=== PATIENT | female | born 1990 | race Caucasian/White ===

== ENCOUNTER 2017-11-03 19:24 | Emergency (ER) | payer OTHER ==
[2017-11-03] MEDS ORDERED: Sodium Chloride 0.9% 1000 ML 1,000 ML IV STA (19:30)
[2017-11-03 19:47] VITALS: O2SAT 99
[2017-11-03] MEDS ORDERED: Sodium Chloride 0.9% 1000 ML 1,000 ML ONE (19:53)
[2017-11-03 19:54] LABS: Basophil (Absolute #) 0 (0-0.4); Eosinophil % 1.2 % (0.00-5.0); Eosinophil (Absolute #) 0.09 (0-0.5); Granulocyte Absolute (ANC) 4.85 (1.4-6.9); Granulocytes % 65.8 % (36.0-66.0); Hemoglobin 12.3 gm/dl (12.0-16.0); Lymphocyte (Absolute #) 1.65 (1.0-4.6); Lymphocytes % 22.4 % (24.0-44.0); Mean Cell Volume 90.2 fl (78-100); Mean Corpuscular Hgb Concent. 33.2 g/dl (32-36); Monocyte (Absolute #) 0.78 (0.0-1.3); Monocytes % 10.6 % (0.0-12.0); Platelet Count 187 K/mm3 (150-450); Red Cell Distribution Width 12.8 % (11.5-14.0); White Blood Count 7.4 K/mm3 (4.0-10.5)
--- NOTE | 2017-11-03 20:02 | ERPHSYRPT ---
- History of Present Illness Time Seen by Provider: 11/03/17 19:57 Source: patient Exam Limitations: no limitations Patient Subjective Stated Complaint: pt states she began having chest pain approx 3-4 hours ago. describes pain as pressure and pounding in her chest. Triage Nursing Assessment: pt alert and oriented, answers questions approp. pt ambulatory with steady gait noted. respirations nonlabored with lungs cta. skin pink warm and dry. heart rate 92 on monitor, sinus arrhythmia with frequest pvc' s and occasional bigeminy. Physician History: 27-year-old female without any significant past medical history started having chest pain and pounding sensation in her chest for last 3-4 hours. 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 She denies any fever, chills, nausea, vomiting, shortness of breath. She states that she had a same type of problem when she was . Holter monitor and all other tests were found to be unremarkable. Since then. She did not have at this type of feeling. She denies any other stressful situation at present. Timing/Duration: today Activities at Onset: none Quality: fullness Location: substernal Chest Pain Radiation: no radiation Severity of Pain-Max: mild Severity of Pain-Current: moderate Modifying Factors: Improves With: nothing Nitro Today/Relief: no nitro taken today Aspirin Treatment Today: no aspirin today Associated Symptoms: chest pain, other (palpitations), No nausea, No vomiting, No abdominal pain, No shortness of breath, No diaphoresis, No cough, No chills, No fever, No headaches, No loss of appetite, No malaise, No syncope, No seizure , No weakness Prior Chest Pain/Cardiac Workup: no prior chest pain Allergies/Adverse Reactions: cefaclor [From Ceclor] Allergy (Intermediate, Verified 11/03/17 19:50) Rash Home Medications: Sertraline HCl 50 mg [Zoloft 50 mg Tablet] 50 mg PO HS 11/03/17 [History] Hx Tetanus, Diphtheria Vaccination/Date Given: Yes Hx Influenza Vaccination/Date Given: Yes Hx Pneumococcal Vaccination/Date Given: No Immunizations Up to Date: Yes - Review of Systems Constitutional: No Fever, No Chills Eyes: No Symptoms Ears, Nose, & Throat: No Symptoms Respiratory: No Cough, No Dyspnea Cardiac: Chest Pain, Palpitations, No Edema, No Syncope Abdominal/Gastrointestinal: No Abdominal Pain, No Nausea, No Vomiting, No Diarrhea Genitourinary Symptoms: No Dysuria Musculoskeletal: No Back Pain, No Neck Pain Skin: No Rash Neurological: No Dizziness, No Focal Weakness, No Sensory Changes Psychological: No Symptoms Endocrine: No Symptoms All Other Systems: Reviewed and Negative - Past Medical History Pertinent Past Medical History: No Psycho-Social History: Anxiety, Depression Other Medical History: hx of irreg hr, pvc's while - Past Surgical History Past Surgical History: Yes Gastrointestinal: Cholecystectomy Other Surgical History: T&A - Social History Smoking Status: Never smoker Exposure to second hand smoke: No Drug Use: none Patient Lives Alone: No - Female History Hx Last Menstrual Period: 10/11/17 Hx Now: No - Nursing Vital Signs Nursing Vital Signs: Initial Vital Signs Temperature 99.0 F 11/03/17 19:38 Pulse Rate 74 11/03/17 19:38 Respiratory Rate 18 11/03/17 19:38 Blood Pressure 158/116 11/03/17 19:38 O2 Sat by Pulse Oximetry 99 11/03/17 19:38 Pain Scale Pain Intensity 4 - Physical Exam General Appearance: no apparent distress, alert Eye Exam: PERRL/EOMI, eyes nml inspection Ears, Nose, Throat Exam: normal ENT inspection, moist mucous membranes Neck Exam: normal inspection, non-tender, supple Respiratory Exam: normal breath sounds, lungs clear, No respiratory distress Cardiovascular Exam: normal heart sounds, tachycardia, No edema Gastrointestinal/Abdomen Exam: soft, No tenderness, No mass Back Exam: normal inspection, No CVA tenderness, No vertebral tenderness Extremity Exam: normal inspection, normal range of motion Neurologic Exam: alert, oriented x 3, cooperative, normal mood/affect, nml cerebellar function, sensation nml, No motor deficits Skin Exam: normal color, warm, dry Lymphatic Exam: No adenopathy SpO2: 99 Oxygen Delivery: Room Air - Course Nursing assessment & vital signs reviewed: Yes EKG Interpreted by Me: Other (multiple PVCs) - Radiology Exams Chest X-ray Interpretation: Reviewed by me, Negative Ordered Tests: Active Orders 24 hr Category Date Time Status 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 Care 11/03/17 19:31 Active EKG-ER Only STAT Care 11/03/17 19:30 Active IV Insertion STAT Care 11/03/17 19:30 Active CHEST 1 VIEW (PORTABLE) Stat Exams 11/03/17 19:31 Completed CBC W DIFF Stat Lab 11/03/17 19:50 Completed CMP Stat Lab 11/03/17 19:50 Completed CULTURE,URINE Stat Lab 11/03/17 20:15 Received D-DIMER QUANTITATION Stat Lab 11/03/17 19:50 Completed HCG QUALITATIVE,SERUM Stat Lab 11/03/17 19:50 Completed TROPONIN Q3H Lab 11/03/17 19:50 Completed TROPONIN Q3H Lab 11/03/17 22:30 Ordered TROPONIN Q3H Lab 11/04/17 01:30 Ordered TROPONIN Q3H Lab 11/04/17 04:30 Ordered TROPONIN Q3H Lab 11/04/17 07:30 Ordered UA W/ MICROSCOPIC Stat Lab 11/03/17 20:15 Completed Medication Summary Generic Name Dose Route Start Last Admin Trade Name Freq PRN Reason Stop Dose Admin Potassium Chloride/Sodium Chloride 1,000 mls @ 500 mls/hr 11/03/17 20:30 20:50 Sodium Chloride 0.9% W/ 20 Meq Kcl/Liter IV 12/03/17 20:29 500 mls/hr .Q2H LINDA Administration Discontinued Medications Generic Name Dose Route Start Last Admin Trade Name Freq PRN Reason Stop Dose Admin Sodium Chloride 1,000 mls @ 999 mls/hr 11/03/17 19:30 11/03/17 19:55 Sodium Chloride 0.9% 1000 Ml IV 11/03/17 20:30 999 mls/hr .Q1H1M STA Administration Sodium Chloride Confirm 11/03/17 19:53 Sodium Chloride 0.9% 1000 Ml Administered 11/03/17 19:54 Dose 1,000 mls @ ud .ROUTE .STK-MED ONE Magnesium Sulfate/Dextrose 100 mls @ 200 mls/hr 11/03/17 20:32 11/03/17 20:50 Magnesium 1 Gm / 100 Ml D5w IV 11/03/17 21:01 200 mls/hr STAT ONE Administration Ceftriaxone Sodium/Dextrose 1 g in 50 mls @ 100 mls/hr 11/03/17 20:36 20:44 Rocephin 1 Gm-D5w 50 Ml Bag IV 11/03/17 21:05 100 mls/hr STAT STA Administration Magnesium Sulfate/Dextrose Confirm 11/03/17 20:40 Magnesium 1 Gm / 100 Ml D5w Administered 11/03/17 20:41 Dose 100 mls @ ud IV .STK-MED ONE Ceftriaxone Sodium/Dextrose Confirm 11/03/17 20:40 Rocephin 1 Gm-D5w 50 Ml Bag Administered 11/03/17 20:41 Dose 1 g in 50 mls @ ud IV .STK-MED ONE Lab/Rad Data: Laboratory Result Diagrams 11/03/17 19:50 11/03/17 19:50 Laboratory Results 11/03/17 11/03/17 11/03/17 Range/Units 20:15 19:50 19:50 WBC (4.0-10.5) K/mm3 RBC (4.1-5.4) M/mm3 Hgb (12.0-16.0) gm/dl Hct (35-47) % MCV (78-100) fl MCH (26-32) pg MCHC (32-36) g/dl RDW (11.5-14.0) % Plt Count (150-450) K/mm3 MPV (6-9.5) fl Gran % (36.0-66.0) % Lymphocytes % (24.0-44.0) % Monocytes % (0.0-12.0) % Eosinophils % (0.00-5.0) % Basophils % (0.0-0.4) % Basophils # (0-0.4) D-Dimer (0-500) ng/mL Sodium (136-145) mEq/L Potassium (3.5-5.1) mEq/L Chloride (98-107) mEq/L Carbon Dioxide (21-32) mEq/L Anion Gap (5-15) MEQ/L BUN (9-20) mg/dL Creatinine (0.55-1.30) mg/dl Estimated GFR ML/MIN Glucose (70-110) MG/DL Calcium (8.5-10.1) mg/dL Total Bilirubin (0.2-1.0) mg/dL AST (15-37) U/L ALT (12-78) U/L Alkaline Phosphatase (46-116) U/L Troponin I < 0.017 (0.000-0.056) ng/ml Serum Total Protein (6.4-8.2) gm/dL Albumin (3.4-5.0) g/dL Serum , Qual NEGATIVE (Negative) Ur Collection Type CLEAN CATCH Urine Color YELLOW (YELLOW) Urine Appearance CLEAR (CLEAR) Urine pH 5.0 (5-6) Ur Specific [place] 1.020 (1.005-1.025) Urine Protein NEGATIVE (Negative) Urine Ketones SMALL (NEGATIVE) Urine Blood TRACE NON-HEM (0-5) Raul/ul Urine Nitrite NEGATIVE (NEGATIVE) Urine Bilirubin NEGATIVE (NEGATIVE) Urine Urobilinogen NORMAL (0-1) mg/dL Ur Leukocyte Esterase 2+ (NEGATIVE) Urine Microscopic RBC 2-5 (0-2) /HPF Urine Microscopic WBC 5-10 (0-5) /HPF Ur Epithelial Cells FEW (FEW) /HPF Urine Bacteria MODERATE (NEGATIVE) /HPF Urine Mucus SLIGHT (NEGATIVE) /HPF Urine Culture Reflexed YES (NO) Urine Glucose NEGATIVE (NEGATIVE) mg/dL Specimen Received 11/03/17201411/03/17 11/03/17 11/03/17 Range/Units 19:50 19:50 19:50 WBC 7.4 (4.0-10.5) K/mm3 RBC 4.10 (4.1-5.4) M/mm3 Hgb 12.3 (12.0-16.0) gm/dl Hct 37.0 (35-47) % MCV 90.2 (78-100) fl MCH 30.0 (26-32) pg MCHC 33.2 (32-36) g/dl RDW 12.8 (11.5-14.0) % Plt Count 187 (150-450) K/mm3 MPV 11.0 H (6-9.5) fl Gran % 65.8 (36.0-66.0) % Lymphocytes % 22.4 L (24.0-44.0) % Monocytes % 10.6 (0.0-12.0) % Eosinophils % 1.2 (0.00-5.0) % Basophils % 0.0 (0.0-0.4) % Basophils # 0 (0-0.4) D-Dimer 446.84 (0-500) ng/mL Sodium 138 (136-145) mEq/L Potassium 3.0 L* (3.5-5.1) mEq/L Chloride 101 (98-107) mEq/L Carbon Dioxide 23.8 (21-32) mEq/L Anion Gap 16.1 H (5-15) MEQ/L BUN 14 (9-20) mg/dL Creatinine 0.94 (0.55-1.30) mg/dl Estimated GFR > 60 ML/MIN Glucose 84 (70-110) MG/DL Calcium 9.1 (8.5-10.1) mg/dL Total Bilirubin 0.60 (0.2-1.0) mg/dL AST 24 (15-37) U/L ALT 31 (12-78) U/L Alkaline Phosphatase 73 (46-116) U/L Troponin I (0.000-0.056) ng/ml Serum Total Protein 7.7 (6.4-8.2) gm/dL Albumin 3.9 (3.4-5.0) g/dL Serum , Qual (Negative) Ur Collection Type Urine Color (YELLOW) Urine Appearance (CLEAR) Urine pH (5-6) Ur Specific [place] (1.005-1.025) Urine Protein (Negative) Urine Ketones (NEGATIVE) Urine Blood (0-5) Raul/ul Urine Nitrite (NEGATIVE) Urine Bilirubin (NEGATIVE) Urine Urobilinogen (0-1) mg/dL Ur Leukocyte Esterase (NEGATIVE) Urine Microscopic RBC (0-2) /HPF Urine Microscopic WBC (0-5) /HPF Ur Epithelial Cells (FEW) /HPF Urine Bacteria (NEGATIVE) /HPF Urine Mucus (NEGATIVE) /HPF Urine Culture Reflexed (NO) Urine Glucose (NEGATIVE) mg/dL Specimen Received - Progress Progress: improved Air Movement: good Blood Culture(s) Obtained: No Antibiotics given: Yes Counseled pt/family regarding: lab results, diagnosis, need for follow-up, rad results - Departure Time of Disposition: 21:35 Departure Disposition: Home Clinical Impression: Premature ventricular beats, Hypokalemia UTI (urinary tract infection) Qualifiers: Urinary tract infection type: acute pyelonephritis Qualified Code(s): N10 - Acute pyelonephritis Condition: Stable Critical Care Time: Yes Critical Care Time(excluding separately billable procedures): 30-74 minutes [facility] [Primary Care Provider] - Instructions: Urinary Tract Infection (UTI), Hypokalemia, Arrhythmias Additional Instructions: URINARY TRACT INFECTION 1. You will need to drink plenty of fluids in order to keep your urinary system flushed. These fluids should mainly consist of water and juices. 2. Take medications as directed. You need to completely finish any antiobiotic prescription given. 3. Try to avoid coffee, tea, alcohol, and seasoned foods as they may cause bladder irritation. 4. If signs and symptoms persist after 3-4 days, you will need to follow up with your family physician. 5. Female Patients: A. Avoid intercourse for 3-4 days. B. Empty bladder before and after intercourse to reduce risk of re- infection. C. After emptying bladder, wipe from front to back to reduce the risk of re- infection. Prescriptions: Ciprofloxacin [Cipro 500 MG] 500 mg PO BID #15 tablet Metoprolol Tartrate 25 mg [Lopressor 25MG Tab] 25 mg PO DAILY 30 Days #30 tab
[2017-11-03 20:17] LABS: Appearance CLEAR (CLEAR)
[2017-11-03 20:20] LABS: Bilirubin NEGATIVE (NEGATIVE); Blood TRACE NON-HEM Ery/ul (0-5); Glucose NEGATIVE (NEGATIVE); Ketones SMALL (NEGATIVE); Leukocyte Esterase 2+ (NEGATIVE); Nitrite NEGATIVE (NEGATIVE); Protein,Urine Dip NEGATIVE (Negative); Urobilinogen NORMAL mg/dL (0-1)
[2017-11-03 20:21] LABS: ALBUMIN 3.9 g/dL (3.4-5.0); ALKALINE PHOSPHATASE 73 U/L (46-116); ANION GAP 16.1 MEQ/L (5-15); BLOOD UREA NITROGEN 14 mg/dL (9-20); CHLORIDE 101 mEq/L (98-107); Calcium 9.1 mg/dL (8.5-10.1); Carbon Dioxide 23.8 mEq/L (21-32); Creatinine 1 0.94 mg/dl (0.55-1.30); EST GLOMERULAR FILTRATION RATE > 60 ML/MIN; Glucose 84 MG/DL (70-110); SGOT/AST 24 U/L (15-37); SGPT/ALT 31 U/L (12-78); Total Protein 7.7 gm/dL (6.4-8.2)
[2017-11-03 20:24] LABS: SODIUM 138 mEq/L (136-145)
[2017-11-03 20:28] LABS: Bacteria MODERATE /HPF (NEGATIVE); Epithelial Cells FEW /HPF (FEW); Mucus SLIGHT /HPF (NEGATIVE)
[2017-11-03] MEDS ORDERED: Sodium Chloride 0.9% W/ 20 mEq KCl/LITER 1,000 ML IV SCH (20:30)
[2017-11-03] MEDS ORDERED: Magnesium 1 Gm / 100 Ml D5W*** 100 ML IV ONE ×2 (20:32→20:40)
[2017-11-03] MEDS ORDERED: ROCEPHIN 1 Gm-D5w 50 ml Bag** 1 G/50 ML IVPB IV STA (20:36)
[2017-11-03] MEDS ORDERED: Sodium Chloride 0.9% W/ 20 mEq KCl/LITER 1,000 ML IV ONE (20:40)
[2017-11-03] MEDS ORDERED: ROCEPHIN 1 Gm-D5w 50 ml Bag** 1 G/50 ML IVPB IV ONE (20:40)
--- NOTE | 2017-11-03 21:42 | XRAY ---
Indication: Palpitations. Comparison: None Portable chest demonstrates normal heart, lungs, and bony thorax with a few incidental calcified granulomas.
[2017-11-03] MEDS ORDERED: Lopressor 25MG Tab PO ONE (22:36)
[2017-11-03] MEDS ORDERED: Lopressor 25MG Tab ONE (22:38)
[2017-11-03 23:20] VITALS: BP 126/77; PULSE 104
== END 2017-11-03 23:15 | disposition home or self-care (01) ==
LOC: ED 19:24
DX: N10 Acute pyelonephritis (principal); E87.6 Hypokalemia; I49.3 Ventricular premature depolarization; R07.9 Chest pain, unspecified
CPT/HCPCS: 36000; 36415; 71010; 80053; 81000; 84484; 84703; 85025; 85379; 87086; 93005; 93041; 96360; 96361; 96365; 96366; 96367; 99284; J0696; J3475; A9270-GY